=== PATIENT | male | born 1945 | race Caucasian/White ===

== ENCOUNTER 2017-04-22 19:45 | Emergency (ER) | payer OTHER ==
[2017-04-22 19:54] VITALS: BP 131/76; PULSE 71; TEMP 97.7; BMI 31.1
--- NOTE | 2017-04-22 19:54 | PDOC ---
Rapid Medical Evaluation Time Seen by Provider: 04/22/17 19:48 Medical Evaluation: Allergies Allergy/AdvReac Type Severity Reaction Status Date / Time No Known Allergies Allergy Verified 05/30/16 20:36 04/22/17 19:48 The patient presents with a chief complaint of: Shortness of breath and abdominal pain. States that the pain is in the upper abdomen and causing his shortness of breath. Denies fever, cough, admits to constipation I have performed a brief in-person evaluation of this patient; Pertinent physical exam findings. TTP RUQ, epigastric, LUQ I have ordered the following: CBC, CMP, PT/INR, Lipase, UA, CXR, abdominal xray The patient will proceed to the ED for further evaluation.
--- NOTE | 2017-04-22 20:46 | PDOC ---
History of Present Illness - General Chief Complaint: Pain Stated Complaint: FATIGUE Time Seen by Provider: 04/22/17 19:48 History Source: Patient Exam Limitations: No Limitations - History of Present Illness Initial Comments: 04/22/17 21:03 Patient is 72 y/o with a history of sleep apnea, CVA (6 yrs ago) and HTN presents to the ED for bilateral flank pain radiating to the groin associated with shortness of breath since last night although patient felt similar discomfort for the past month. Believes to be associated with gas. Last bowel movement this morning although minimal in volume. Denies headaches, chest pain, abdominal pain dysuria. Drinks [id number] of water every morning. 04/22/17 21:37 04/22/17 21:56 Past History - Past Medical History Allergies/Adverse Reactions: Allergies Allergy/AdvReac Type Severity Reaction Status Date / Time No Known Allergies Allergy Verified 04/22/17 19:51 Home Medications: Ambulatory Orders Pantoprazole Sodium [Protonix -] 40 mg PO BID #0 tablet.ec 01/19/14 Losartan Potassium [Cozaar -] 100 mg PO DAILY 04/22/17 Metoprolol Succinate [Toprol Xl] 25 mg PO DAILY 04/22/17 Simvastatin [Zocor -] 40 mg PO HS 04/22/17 Cardiac Disorders: Yes ([place]) CVA: Yes (4YEARS AGO.) COPD: No HTN: Yes - Suicide/Smoking/Psychosocial Hx Smoking Status: No Smoking History: Never smoked Number of Cigarettes Smoked Daily: 0 Hx Alcohol Use: No Drug/Substance Use Hx: No Substance Use Type: None Hx Substance Use Treatment: No Review of Systems - Review of Systems Able to Perform ROS?: Yes Is the patient limited Marshallese proficient: No Constitutional: No: Symptoms Reported HEENTM: No: Symptoms Reported Respiratory: Yes: See HPI Cardiac (ROS): No: Symptoms Reported ABD/GI: Yes: See HPI : No: Symptoms Reported Musculoskeletal: No: Symptoms Reported Integumentary: No: Symptoms Reported Neurological: No: Symptoms reported Endocrine: No: Symptoms Reported Hematologic/Lymphatic: No: Symptoms Reported All Other Systems: Reviewed and Negative *Physical Exam - Vital Signs Last Vital Signs Temp Pulse Resp BP Pulse Ox 97.7 F 71 16 131/76 97 04/22/17 19:45 04/22/17 19:45 04/22/17 19:45 04/22/17 19:45 04/22/17 19:45 - Physical Exam General Appearance: Yes: Nourished, Appropriately Dressed, Apparent Distress HEENT: positive: EOMI, [place], Normal ENT Inspection Neck: negative: Tender Respiratory/Chest: positive: Lungs Clear, Normal Breath Sounds. negative: Chest Tender, Respiratory Distress Cardiovascular: positive: Regular Rhythm, Regular Rate, S1, S2 Gastrointestinal/Abdominal: positive: Normal Bowel Sounds, Flat, Soft. negative : Tender Musculoskeletal: positive: CVA Tenderness Extremity: positive: Normal Capillary Refill, Normal Inspection, Normal Range of Motion Integumentary: positive: Normal Color, Dry, Warm, Other (very dry skin b/l hand) Neurologic: positive: Fully Oriented, Alert, Normal Mood/Affect ED Treatment Course - LABORATORY CBC & Chemistry Diagram: 04/22/17 20:50 04/22/17 20:50 Medical Decision Making - Medical Decision Making 04/23/17 04:22 Patient is 72 y/o with a history of sleep apnea, CVA (6 yrs ago) and HTN presents to the ED for bilateral flank pain radiating to the groin associated with shortness of breath since last night although patient felt similar discomfort for the past month. 04/23/17 04:23 pt feeling much better after simethicone xray showed constipation ct showed cholelithiasis without acute cholecystitis pain resolved pt stable for d/c to home *DC/Admit/Observation/Transfer Diagnosis at time of Disposition: Abdominal pain - Discharge Dispostion Disposition: HOME Condition at time of disposition: Stable - Referrals Referrals: Jose Rafael Alexander MD [Primary Care Provider] - - Patient Instructions Printed Discharge Instructions: DI for Abdominal Pain-Adult Additional Instructions: Please call your PMD to arrange for follow up. Please take all meds as prescribed. Please drink plenty of water. Please return to the ED with any further complaints. - Post Discharge Activity
[2017-04-22] MEDS ORDERED: SIMETHICONE 80 MG TAB.CHEW (FP) PO ONE (20:53)
[2017-04-22 20:55] LABS: BASO % 0.2 % (0-2.0); EOS % 3.4 % (0-4.5); HEMATOCRIT 46.1 % (35.4-49); HEMOGLOBIN 15.4 GM/dL (11.7-16.9); LYMPH % 28.8 % (8-40); MCH 29.9 pg (25.7-33.7); MCHC 33.4 g/dl (32.0-35.9); MEAN CELL VOLUME 89.6 fl (80-96); MEAN PLT VOLUME 8.7 fl (7.5-11.1); NEUT % 58.6 % (42.8-82.8); PLATELET COUNT 209 K/MM3 (134-434); RBC 5.15 M/mm3 (4.00-5.60); RDW 12.9 % (11.9-15.9); WHITE BLOOD COUNT 7.7 K/mm3 (4.0-10.0)
[2017-04-22 20:56] LABS: URINE APPEARANCE CLEAR; URINE BILIRUBIN NEGATIVE (NEGATIVE); URINE BLOOD NEGATIVE (NEGATIVE); URINE COLOR STRAW; URINE GLUCOSE (UA) NEGATIVE (NEGATIVE); URINE KETONE NEGATIVE (NEGATIVE); URINE LEUK ESTERASE NEGATIVE (NEGATIVE); URINE NITRITE NEGATIVE (NEGATIVE); URINE PROTEIN NEGATIVE (NEGATIVE); URINE UROBILINOGEN NEGATIVE mg/dL (0.2-1.0)
[2017-04-22 21:08] LABS: INR 1.01 (0.82-1.09); PROTHROMBIN TIME (PATIENT) 11.4 SEC (9.98-11.88)
--- NOTE | 2017-04-22 21:13 | PDOC ---
Attending Attestation - HPI HPI: 04/22/17 21:56 The patient is a 72 year old male with history of hypertension, CVA, sleep apnea , who presents to the ED complaining of approximately 1 month of shortness of breath and bilateral flank pain with radiation to the groin, worse last night. Also reports associated gassiness. No constipation or diarrhea. No fever or chills. No dysuria or hematuria. - Physicial Exam PE: 04/22/17 22:06 Constitutional: Awake, alert, oriented. No acute distress. Head: Normocephalic. Atraumatic Eyes: PERRL. EOMI. Conjunctivae are not pale. ENT: Mucous membranes are moist and intact. Posterior pharynx without exudates or erythema. Uvula midline. Neck: Supple. Full ROM. No lymphadenopathy. Cardiovascular: Regular rate. Regular rhythm. S1, S2 regular. Distal pulses are 2+ and symmetric. Pulmonary/Chest: No evidence of respiratory distress. Clear to auscultation bilaterally No wheezing, rales or rhonchi. Abdominal: +Mild suprapubic distention. Soft. There is no tenderness. No rebound, guarding or rigidity. No organomegaly. No palpable masses. Good bowel sounds. Back: +Bilateral CVA tenderness to palpation. Musculoskeletal: No edema. No cyanosis. No clubbing. Full range of motion in all extremities. Nocalf tenderness. Radial/pedal pulses are intact and 2+ bilaterally Skin: Skin is warm and dry. No petechiae. No purpura. Neurological: Alert and oriented to person, place, and time. Cranial nerves II -XII are grossly intact. Normal speech. Strength is grossly symmetric. No sensory deficits. Psychiatric: Good eye contact. Normal interaction, affect and behavior. - Medical Decision Making 04/22/17 22:07 04/23/17 00:28 CT of abdomen and pelvis Preliminary interpretation by Imaging English Faculty Member. Impression: Cholelithiasis Documentation prepared by Marylin Ahuja, acting as medical assistant supervisor for Paulette Kwong DO. <Marylin Ahuja - Last Filed: 04/23/17 00:28> - Resident Resident Name: Marin Lucia - ED Attending Attestation I have performed the following: I have examined & evaluated the patient, The case was reviewed & discussed with the resident, I agree w/resident's findings & plan, Exceptions are as noted - Medical Decision Making 04/22/17 21:13 I, Dr. Paulette Kwong, DO, attest that this document has been prepared under my direction and personally reviewed by me in its entirety. I further attest, that it accurately reflects all work, treatment, procedures and medical decision -making performed by me. 04/22/17 21:35 a/p: 72yo male with constipation x 2 days and abd distension causing sob -hx of diverticular disease pt states feeling constipated and not passing as much gas no vomiting or diarrhea will check labs, xray, ct 04/23/17 00:34 pt feeling much better after simethicone xray showed constipation ct showed cholelithiasis without acute cholecystitis pain resolved pt stable for d/c to home <Paulette Kwong - Last Filed: 04/23/17 00:37> Discharge Disposition - Discharge Dispostion Last Admission D/C Date: 01/19/14 Admit: No <Paulette Kwong - Last Filed: 04/23/17 00:37> - Diagnosis Abdominal pain - Discharge Dispostion Disposition: HOME Condition at time of disposition: Stable - Referrals Referrals: Jose Rafael Alexander MD [Primary Care Provider] - - Patient Instructions Printed Discharge Instructions: DI for Abdominal Pain-Adult Additional Instructions: Please call your PMD to arrange for follow up. Please take all meds as prescribed. Please drink plenty of water. Please return to the ED with any further complaints. - Post Discharge Activity
[2017-04-22] MEDS ORDERED: SODIUM CHLORIDE 1,000 ML IV STA (21:17)
[2017-04-22 21:20] LABS: ALBUMIN 3.5 g/dl (3.4-5.0); ALK PHOS 58 U/L (45-117); ANION GAP 6 (8-16); BILIRUBIN,TOTAL 0.3 mg/dL (0.2-1.0); BLOOD UREA NITROGEN 14 mg/dL (7-18); CALCIUM 8.6 mg/dL (8.5-10.1); CHLORIDE 103 mmol/L (98-107); CO2 29 mmol/L (21-32); CREATININE 0.8 mg/dL (0.7-1.3); GLUCOSE,RANDOM 100 mg/dL (74-106); SGPT/ALT 25 U/L (12-78); SODIUM 138 mmol/L (136-145); TOT PROT 7.4 g/dl (6.4-8.2)
[2017-04-22 21:24] LABS: POTASSIUM 4.2 mmol/L (3.5-5.1); SGOT/AST 22 U/L (15-37)
== END 2017-04-23 00:42 | disposition home or self-care (01) ==
LOC: JER 19:45
PROC: 3E0337Z Introduction of Electrolytic and Water Balance Substance into Peripheral Vein, Percutaneous Approach (ICD-10-PCS; principal; 2017-04-22)
DX: K80.20 Calculus of gallbladder without cholecystitis without obstruction (principal); K59.00 Constipation, unspecified; I25.2 Old myocardial infarction; I10 Essential (primary) hypertension; Z86.73 Personal history of transient ischemic attack (TIA), and cerebral infarction without residual deficits; G47.30 Sleep apnea, unspecified
CPT/HCPCS: 36415; 71046-TC; 74019-TC; 74177-TC; 80053; 81003; 83690; 85025; 85610; 99281-25

== ENCOUNTER 2018-06-21 09:16 | Day surgery (SDC) | payer OTHER | END 2018-06-21 10:15 | disposition home or self-care (01) | LOC: JASU-ENDO 09:16 ==

== ENCOUNTER 2022-07-22 09:39 | Day surgery (SDC) | payer OTHER ==
[2022-07-17 13:57] VITALS: BMI 32.0
[2022-07-22] MEDS: CIPROFLOXACIN 0.3% EYE DROPS 5 ML BOTTLE ONE ×3 (10:30→10:40)
[2022-07-22] MEDS: CYCLOPENTOLATE 2% OPHTH SOLN 2 ML BOTTLE ONE ×3 (10:30→10:40)
[2022-07-22] MEDS: PHENYLEPHRINE 2.5% OPTHALMIC DROP 2ML BOTTLE ONE ×3 (10:30→10:40)
[2022-07-22] MEDS: TROPICAMIDE 1% OPHTH SOLN 15 ML BOTTLE ONE ×3 (10:30→10:40)
[2022-07-22] MEDS ORDERED: BSS (NA/CA/MG/K) BALANCED SALT SOLUTION OPHTH SOLN 15 ML BOTTLE ONE (11:23)
[2022-07-22] MEDS ORDERED: NEO/POLYMYX B SULF/DEXAMETH OPHTHALMIC 5ML BOTTLE ONE (11:23)
[2022-07-22] MEDS ORDERED: TETRACAINE 0.5% OPHTH SOLN 2 ML BOTTLE ONE (11:23)
[2022-07-22] MEDS ORDERED: LIDOCAINE 1% P/F 10 MG/ML VIAL ONE (11:23)
[2022-07-22] MEDS ORDERED: CARBACHOL 0.01% INTRA-OCULAR 1.5 ML VIAL ONE (11:23)
[2022-07-22 12:34] VITALS: BP 135/83; PULSE 78; RESP 18; TEMP 94
== END 2022-07-22 12:59 | disposition home or self-care (01) ==
LOC: FASU 09:39
PROVIDERS: ATTEND Ophthalmology
PROC: 08RK3JZ Replacement of Left Lens with Synthetic Substitute, Percutaneous Approach (ICD-10-PCS; principal; 2022-07-22 12:14)
DX: H26.8 Other specified cataract (principal)
CPT/HCPCS: 66984; V2632